=== PATIENT | female | born 1925 | race Caucasian/White ===

== ENCOUNTER 2016-04-06 18:20 | Emergency (ER) | payer OTHER, MEDICARE ==
--- NOTE | 2016-04-06 18:45 | DIAGNOSTIC IMAGING REPORT ---
PROCEDURE: CT HEAD WITHOUT CONTRAST INDICATION: STROKE TECHNIQUE: Axial CT images were acquired through the head. Coronal and sagittal reformations were created. COMPARISON: None. FINDINGS: Mild cerebral cortical atrophy. Mild hypodensity in the periventricular and subcortical white matter. No focal cortical defect. No intracranial hemorrhage or extraaxial fluid collections. Ventricles are normal in size, shape and position. There is no mass, mass effect or midline shift. The alexander-white matter differentiation is normal. There is no edema. Mild scattered calcific atherosclerosis of the intracranial internal carotid arteries. The calvarium is intact. The paranasal sinuses and mastoid air cells are normally aerated. The extracranial soft tissues and orbits are normal. IMPRESSION: 1. No CT evidence of acute intracranial process. 2. Age related involutional and white matter changes. 3. Findings discussed with Dr. Klein at [address] scans at this facility use dose modulation, iterative reconstruction, and/or weight-based dosing when appropriate to reduce radiation dose to as low as reasonably achievable.
--- NOTE | 2016-04-06 19:42 | ED ORDER SUMMARY ---
..... Patient: JAMES BALDWIN OrderSheet [facility] VisitID: [id number] [address] [place] [address] 89y, F Registration Date/Time: 04/06/2016 ORDER SHEET Weight: 69 kg (measured) Allergies: Sulfa Antibiotics GENERAL ORDERS: CT Head wo Cont Urgent (18:23 04/06/2016 LNations ER Tech1 per protocol) (Ack 18:25 KHoerner) (18:58 MCampbell) Chest 1V Urgent (18:26 04/06/2016 Jennie [place]) (Ack 18:32 KHoerner) (20:20 MCampbell) Paperboard Machine Operator (Continuous) (stroke symptoms) (18:26 04/06/2016 Jennie Washington) (Ack 18:32 KHoerner) Stroke Panel Stat (18:27 04/06/2016 Jennie Washington) (Ack 18:32 KHoerner) UA-Culture if indicated Urgent (18:27 04/06/2016 Jennie Washington) (Ack 18:32 KHoerner) Consult - Neuro (18:27 04/06/2016 Jennie Washington) (Ack 18:32 KHoerner) EKG - ER Stat (18:04/06/2016 Jennie Washington) (Ack 18:32 KHoerner) (19:03 KHoerner) - (18:27 04/06/2016 Jennie Washington) (18:33 KHoerner) Consent for Thrombolytics (have patient sign) (18:58 04/06/2016 Jennie Washington) Type & Cross (stroke) (tpa) Urgent (20:27 04/06/2016 DBeyer R.NKatlin per protocol) (20:28 DBeyer R.NKatlin) Type & Screen Urgent (20:28 04/06/2016 Jeannine RKatlinNKatlin verbal order read back to Jennie Washington) MEDICATION ORDERS: - (18:27 04/06/2016 Jennie Washington) (Cancelled: Duplicate Order18:34 Jennie Washington) IV FLUIDS: IV Saline Lock (18:04/06/2016 Jennie Washington) (18:41 Jeannine Lei) Metoprolol IV 5 mg (HIGH ALERT MEDICATION) (18:49 04/06/2016 Jeannine Lei verbal order read back to Jennie Washington) (18:53 Jeannine Lei) Metoprolol IV 5 mg (HIGH ALERT MEDICATION, NOW) (18:53 04/06/2016 Jennie Washington) (19:11 Jeannine Lei) TPA Protocol (Stroke) 0.9 mg/kg (Bolus-10% of total dose given over 1min, Infusion-remaining 90% of total dose given over 59) (18:57 04/06/2016 Jennie Washington) (19:17 Jeannine Lei) Labetalol IV 10 mg (HIGH ALERT MEDICATION, NOW) (19:40 04/06/2016 Jennie Washington) (Cancelled: Change in patient [id number]:41 Jennie Washington) ORDER SHEET NOTES: [Electronically signed by Abdulaziz Koroma R.N. (21:30 04/06/2016)] [Electronically signed by Hiram Klein Dr. (14:36 04/13/2016)] [Electronically locked/signed by Abdulaziz Koroma R.N. (21:30 04/06/2016)]
--- NOTE | 2016-04-06 19:42 | ED NURSING NOTES ---
Clinical Report - Nurses [facility] [address] [place] [address] 04/06/2016 18:20 [id number] TRI[facility] Triage time 18:27 Apr 06 2016. Chief Complaint: (stroke symptoms). --18:29 Abdulaziz Koroma R.N. 18:27 04/06/16. BP: 175/60. HR: 58. RR: 18. O2 saturation: 95%. Pain level now 0/10. --18:29 Abdulaziz Koroma R.N. ( cbg 122, NIHSS 7). --18:32 Abdulaziz Koroma R.N. Acuity: LEVEL 2. --18:32 Abdulaziz Koroma R.N. 18:41 04/06/16. Temp: 98 F. --18:41 Abdulaziz Koroma R.N. Weight: 69 kg measured. Height/Length: 60 inches Per Patient. BMI: 29.7. --18:42 Abdulaziz Koroma R.N. Medications Aspirin EC Oral. --18:43 Abdulaziz Koroma R.N. Allergies Sulfa Antibiotics. --18:28 Abdulaziz Koroma R.N. History Arrived by EMS. ( Last seen normal 1600 sudden onset facial weakness and droop with slurred speech). --18:29 Abdulaziz Koroma R.N. ( arrived 1820). --18:32 Abdulaziz Koroma R.N. Interventions ID band on patient. To treatment room. --18:32 Abdulaziz Koroma R.N. PHYSICAL ASSESSMENT GENERAL / NEURO / PSYCH: Alert. Oriented X 4. Appears anxious. HEENT: Left-sided facial weakness. RESPIRATORY: Respirations not labored. Breath sounds within normal limits. SKIN: Skin is warm and dry. --18:45 Abdulaziz Koroma R.N. NURSING PROGRESS NOTES 18:41 04/06/2016 Site #1 started via IV in the left antecubital space with an 20g angiocath; one attempt. Blood drawn: rainbow set. Labeled in the presence of the patient. Saline lock flushed with saline. --18:41 Abdulaziz Koroma R.N. marketing analytics manager and pulse oximeter placed on patient. Patient gowned. Call light placed in reach. Side rails up x 1. Bed placed in lowest position. --18:46 Abdulaziz Koroma R.N. 18:53 04/06/2016 Metoprolol (Metoprolol Tartrate) IVP 5 mg given over 3 minute(s) via site #1. Allergies verified and confirmed 5 rights. IV patency established. IV site checked: no pain, redness, or swelling. IV flushed thoroughly pre- and post-medication administration. IVP given by RN. --18:53 Abdulaziz Koroma R.N. EKG time: (1850). EKG was performed by a tech and shown to the ED physician. --18:54 Abdulaziz Koroma R.N. ( No arm drift L side, pt able to lift l leg shakey against gravity but no drift). --18:55 Abdulaziz Koroma R.N. 19:11 04/06/2016 Metoprolol (Metoprolol Tartrate) IVP 5 mg given over 2 minute(s) via site #1. Allergies verified and confirmed 5 rights. IV patency established. IV site checked: no pain, redness, or swelling. IV flushed thoroughly pre- and post-medication administration. IVP given by RN. --19:11 Abdulaziz Koroma R.N. 19:17 04/06/2016 Started 63 mg of TPA Protocol (Stroke) IVPB in bag #1 63 mL; at 57 mL/hr over 1 hour(s) via site #1 via IV pump. Allergies verified and confirmed 5 rights. IV patency established. IV site checked: no pain, redness, or swelling. IV flushed thoroughly pre- and post-medication administration (dose confrimed by RN, pharmacy and MD). --19:17 Abdulaziz Koroma R.N. 19:00 04/06/16. BP: 189/71. HR: 72. O2 saturation: 94%. --19:19 Abdulaziz Koroma R.N. 18:30 04/06/16. BP: 171. HR: 64. O2 saturation: 95%. --19:20 Abdulaziz Koroma R.N. 19:22 04/06/16. BP: 177/83. HR: 59. RR: 18. O2 saturation: 98%. Temp: 98 F. --19:22 Abdulaziz Koroma R.N. ( no change neruo status no hemorrhage). --19:36 Abdulaziz Koroma R.N. NIH STROKE SCALE: NIH Stroke Scale: score 3. Level of Consciousness: alert (0). LOC Questions: both (0). LOC Commands: both (0). Best gaze: normal (0). Visual field loss: none (0). Facial palsy: minor (1). Motor arm: no drift right arm (0) and no drift left arm (0). Motor leg: no drift right leg (0) and no drift left leg (0). Limb ataxia: two limbs (2). Sensory loss: none (0). Aphasia: none (0). Dysarthria: normal (0). Extinction and inattention: none (0). --19:40 Abdulaziz Koroma R.N. 19:38 04/06/16. BP: 164/54. --19:40 Abdulaziz oKroma R.N. ( weakness on L side noted but no drift). --19:42 Abdulaziz Koroma R.N. 19:23 04/06/2016 Site #2 started via IV in the right wrist with an 20g angiocath; three attempts. Blood drawn. Saline lock flushed with saline. --20:33 Abdulaziz Koroma R.N. 20:22 04/06/2016 TPA Protocol (Stroke) IVPB Discontinued: bag #1 discontinued upon transfer. Total amount infused: 45 mL. IV patency established. IV site checked: no pain, redness, or swelling. IV flushed thoroughly. (stopped due to hemorrage, pt received 45mg). --20:22 Abdulaziz Koroma R.N. DISPOSITION / DISCHARGE ( TPA stopped, 11mg left in infusion, blood noted in pts diaper pt approximately 50 ml blood noted MD aware at bedside for eval. EMS arrived for transfer will transfer pt per MD). --20:21 Abdulaziz Koroma R.N. 20:13 04/06/16. BP: 165/97. HR: 65. RR: 18. O2 saturation: 95%. Temp: 98.4 F. Pain level now 5/10. --20:21 Abdulaziz Koroma R.N. The patient was discharged by the physician. ( bleeding controlled at this time report to EMS, NIHSS stroke scale 3 at time of transfer). --20:32 Abdulaziz Koroma R.N. Departure time: 20:34 Apr 06 2016. --20:34 Abdulaziz Koroma R.N. Locked/Released at 04/06/2016 21:30 by Abdulaziz Koroma R.N.
--- NOTE | 2016-04-06 19:42 | ED CLINICAL REPORT ---
Clinical Report - Physicians/Mid Levels [facility] [address] [place] [address] 04/06/2016 18:20 Patient: JAMES BALDWIN Time Seen: 1819. Arrived- By ambulance. Historian- patient and EMS personnel. HISTORY OF PRESENT ILLNESS Chief Complaint: WEAKNESS and FACIAL DROOP. This started today 1600, patient was last known well (just before 1600) and is still present. It was abrupt in onset and has been constant but is not gone now. The patient has had weakness, (left facial and upper lower extremity). At its maximum deficit described as moderate. When seen in the E.D.,deficit described as moderate. No seizure. Usually is alert and oriented X3 and has normal mobility. Similar symptoms previously: Twice. Recent medical care: The patient was seen recently in the emergency department (seen at another ED. symptoms resolved and patient was released.). REVIEW OF SYSTEMS No fever, chest pain or difficulty breathing. All systems otherwise negative, except as recorded above. PAST HISTORY See nurses notes. Medications: Aspirin EC Oral. Allergies: Sulfa Antibiotics. SOCIAL HISTORY Never smoker. No drug use. Is a local resident. FAMILY HISTORY Negative. ADDITIONAL NOTES The nursing notes have been reviewed. PHYSICAL EXAM Vital Signs: 04/06/2016 18:27 BP: 175/60. HR: 58. RR: 18. O2 saturation: 95%. Hypertensive. Oxygen saturation normal. Appearance: Alert. No acute distress. Head: Head atraumatic. Eyes: Pupils equal, round and reactive to light. ENT: Normal ENT inspection. Airway intact. Pharynx normal. Neck: Normal inspection. CVS: Normal heart rate and rhythm. Heart sounds normal. Pulses normal. Respiratory: Breath sounds normal. Abdomen: Soft and nontender. No organomegaly. Back: Normal inspection. Skin: Skin warm and dry. Normal skin color. No rash. Normal skin turgor. Extremities: No calf tenderness. No lower extremity edema. Neuro: Alert. Oriented X 3. Mood/affect normal. Mild dysarthria. Cranial nerves normal (as tested). Cranial nerve deficit present, as evidenced by a left facial droop and tongue deviation to the right. No sensory deficit. (left sided weakness 4/5 upper weaker than lower). LABS, X-RAYS, AND EKG EKG: No acute ischemia. Normal sinus rhythm. Normal P waves. Normal CORDELL. Normal QRS complex. Normal axis. occasional junctional rhythm. The study has been interpreted contemporaneously. The study has been independently viewed by me. The EKG appears to be a good tracing. CT Head: (no acute intracranial process). Head CT performed without contrast. The study was independently viewed by me and interpreted by the radiologist. The study was discussed with the radiologist (via phone). Laboratory Tests: CBC w Diff: (MOLLY: 04/06/2016 18:36) ( MsgRcvd 04/06/2016 18:45) Final results Test Result Flag Units (Reference) WHITE BLOOD COUNT 8.9 K/uL (4.5-11.5) RED BLOOD COUNT 4.26 M/uL (4.00-5.20) HEMOGLOBIN 12.9 gm/dL (12.0-16.0) HEMATOCRIT 39.6 % (36.0-46.0) MEAN CELL VOLUME 93 fL (80-100) MEAN CORPUSCULAR HGB 30 pg (26-34) MEAN CORPUSCULAR HGB CONC 33 g/dL (31-37) RED CELL DISTRIBUTION WIDTH 14.1 % (11.6-14.8) PLATELET COUNT 290 K/uL (150-400) NEUTROPHIL % 70.2 % (50-75) LYMPH % 17.1 L % (25-40) MONO % 12.1 % (3-14) EOSINOPHIL % 0.5 % (0-4) BASOPHIL % 0.1 % (0-2) . PROGRESS AND PROCEDURES Course of Care: the patient is a pleasant 89 yo female with concerning history of stroke. Code stroke called after exam performed. Patient taken to CT immediately. Patient agreeable to treatment and plan. Had discussion with patient in regards to the risk and benefits of TPA at this point in time, patient is a candidate for TPA. Consult to stroke neuro placed. Patient with hx of colon cancer and "ulcers" without recent bleeding. Patient reports she accepts the risks of bleeding. Bedside guaiac negative. Stroke neuro recommended TPA. CT scan of the head negative. Signed informed consent obtained. pharmacy with medications for TPA made. Dose and meds verified by , juan josé, and RN. We were waiting on coags which I called down to lab to call up to the ED as soon as they were back. Labs were normal. TPA given. Stroke neuro at [facility] updated. They will accept the patient. During patient's course, she had a bowel movement with maroon colored blood. Most of the TPA was given. Only 11 mg was left when the bag was stopped. Patient stable hemodynamically. [facility] updated on the situation. Transport was available and Type/screen would not be helpful as the patient was being transported. Feel the benefit of transport outweighs the risk even with a bleed. Amount of blood in noted estimated to at 50 cc. Prior to transport, patient asymptomatic from the bleeding. Stroke symptoms with slightly improved left sided strength. Critical care performed (65 minutes). Time is exclusive of separately billable procedures. Time includes: direct patient care, patient reassessment, coordination of patient care, interpretation of data (laboratory data), review of patient's medical records, medical consultation, family consultation regarding treatment decisions and documentation of patient care. Consult obtained. stroke neuro at [facility]. Disposition: Benefits, risks and alternatives to transfer explained to patient and family. Transferred to [facility]. CLINICAL IMPRESSION 04/06/2016 20:13 BP: 165/97. HR: 65. RR: 18. O2 saturation: 95%. Temp: 98.4 F. Hypertensive. Oxygen saturation normal. 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 (Electronically signed by Hiram Klein Dr. 04/13/2016 14:36) Addenda for JAMES BALDWIN VisitID: [id number] Date: 04/06/2016 04/07/2016 13:05 At 1850 pt BP was 190/110, aware bp medication ordered (Electronically signed by Abdulaziz Koroma R.N. - 04/07/2016 13:05) 04/07/2016 13:07 at 1910 pt BP systolic is in 190s aware bp med ordered (Electronically signed by Abdulaziz Koroma R.N. - 04/07/2016 13:07)
--- NOTE | 2016-04-06 19:42 | ED ORDER SUMMARY ---
..... Patient: JAMES BALDWIN OrderSheet [facility] VisitID: [id number] [address] [place] [address] 89y, F Registration Date/Time: 04/06/2016 ORDER SHEET Weight: 69 kg (measured) Allergies: Sulfa Antibiotics GENERAL ORDERS: CT Head wo Cont Urgent (18:23 04/06/2016 LNations ER Tech1 per protocol) (Ack 18:25 KHoerner) (18:58 MCampbell) Chest 1V Urgent (18:26 04/06/2016 Jennie Washington) (Ack 18:32 KHoerner) (20:20 MCampbell) Stitch Cleaner (Continuous) (stroke symptoms) (18:26 04/06/2016 Jennie Washington) (Ack 18:32 KHoerner) Stroke Panel Stat (18:27 04/06/2016 Jennie Washington) (Ack 18:32 KHoerner) UA-Culture if indicated Urgent (18:27 04/06/2016 Jennie Washington) (Ack 18:32 KHoerner) Consult - Neuro (18:27 04/06/2016 Jennie Washington) (Ack 18:32 KHoerner) EKG - ER Stat (18:04/06/2016 Jennie Washington) (Ack 18:32 KHoerner) (19:03 KHoerner) - (18:27 04/06/2016 Jennie Washington) (18:33 KHoerner) Consent for Thrombolytics (have patient sign) (18:58 04/06/2016 Jennie Washington) Type & Cross (stroke) (tpa) Urgent (20:27 04/06/2016 DBeyer R.NKatlin per protocol) (20:28 DBeyer R.NKatlin) Type & Screen Urgent (20:28 04/06/2016 Jeannine RKatlinNKatlin verbal order read back to Jennie Washington) MEDICATION ORDERS: - (18:27 04/06/2016 Jennie Washington) (Cancelled: Duplicate Order18:34 Jennie Washington) IV FLUIDS: IV Saline Lock (18:04/06/2016 Jennie Washington) (18:41 Jeannine Lei) Metoprolol IV 5 mg (HIGH ALERT MEDICATION) (18:49 04/06/2016 Jeannine Lei verbal order read back to Jennie Washington) (18:53 Jeannine Lei) Metoprolol IV 5 mg (HIGH ALERT MEDICATION, NOW) (18:53 04/06/2016 Jennie Washington) (19:11 Jeannine Lei) TPA Protocol (Stroke) 0.9 mg/kg (Bolus-10% of total dose given over 1min, Infusion-remaining 90% of total dose given over 59) (18:57 04/06/2016 Jennie Washington) (19:17 Jeannine Lei) Labetalol IV 10 mg (HIGH ALERT MEDICATION, NOW) (19:40 04/06/2016 Jennie Washington) (Cancelled: Change in patient [id number]:41 Jennie Washington) ORDER SHEET NOTES: [Electronically signed by Abdulaziz Koroma R.N. (21:30 04/06/2016)] [Electronically signed by Hiram Klein Dr. (14:36 04/13/2016)] [Electronically locked/signed by Abdulaziz Koroma R.N. (21:30 04/06/2016)]
--- NOTE | 2016-04-06 19:42 | ED NURSING NOTES ---
Clinical Report - Nurses [facility] [address] [place] [address] 04/06/2016 18:20 [id number] Triage time 18:27 Apr 06 2016. Chief Complaint: (stroke symptoms). --18:29 Abdulaziz Koroma R.N. 18:27 04/06/16. BP: 175/60. HR: 58. RR: 18. O2 saturation: 95%. Pain level now 0/10. --18:29 Abdulaziz Koroma R.N. ( cbg 122, NIHSS 7). --18:32 Abdulaziz Koroma R.N. Acuity: LEVEL 2. --18:32 Abdulaziz Koroma R.N. 18:41 04/06/16. Temp: 98 F. --18:41 Abdulaziz Koroma R.N. Weight: 69 kg measured. Height/Length: 60 inches Per Patient. BMI: 29.7. --18:42 Abdulaziz Koroma R.N. Medications Aspirin EC Oral. --18:43 Abdulaziz Koroma R.N. Allergies Sulfa Antibiotics. --18:28 Abdulaziz Koroma R.N. History Arrived by EMS. ( Last seen normal 1600 sudden onset facial weakness and droop with slurred speech). --18:29 Abdulaziz Koroma R.N. ( arrived 1820). --18:32 Abdulaziz Koroma R.N. Interventions ID band on patient. To treatment room. --18:32 Abdulaziz Koroma R.N. PHYSICAL ASSESSMENT GENERAL / NEURO / PSYCH: Alert. Oriented X 4. Appears anxious. HEENT: Left-sided facial weakness. RESPIRATORY: Respirations not labored. Breath sounds within normal limits. SKIN: Skin is warm and dry. --18:45 Abdulaziz Koroma R.N. NURSING PROGRESS NOTES 18:41 04/06/2016 Site #1 started via IV in the left antecubital space with an 20g angiocath; one attempt. Blood drawn: rainbow set. Labeled in the presence of the patient. Saline lock flushed with saline. --18:41 Abdulaziz Koroma R.N. cafeteria monitor and pulse oximeter placed on patient. Patient gowned. Call light placed in reach. Side rails up x 1. Bed placed in lowest position. --18:46 Abdulaziz Koroma R.N. 18:53 04/06/2016 Metoprolol (Metoprolol Tartrate) IVP 5 mg given over 3 minute(s) via site #1. Allergies verified and confirmed 5 rights. IV patency established. IV site checked: no pain, redness, or swelling. IV flushed thoroughly pre- and post-medication administration. IVP given by RN. --18:53 Abdulaziz Koroma R.N. EKG time: (1850). EKG was performed by a tech and shown to the ED physician. --18:54 Abdulaziz Koroma R.N. ( No arm drift L side, pt able to lift l leg shakey against gravity but no drift). --18:55 Abdulaziz Koroma R.N. 19:11 04/06/2016 Metoprolol (Metoprolol Tartrate) IVP 5 mg given over 2 minute(s) via site #1. Allergies verified and confirmed 5 rights. IV patency established. IV site checked: no pain, redness, or swelling. IV flushed thoroughly pre- and post-medication administration. IVP given by RN. --19:11 Abdulaziz Koroma R.N. 19:17 04/06/2016 Started 63 mg of TPA Protocol (Stroke) IVPB in bag #1 63 mL; at 57 mL/hr over 1 hour(s) via site #1 via IV pump. Allergies verified and confirmed 5 rights. IV patency established. IV site checked: no pain, redness, or swelling. IV flushed thoroughly pre- and post-medication administration (dose confrimed by RN, pharmacy and MD). --19:17 Abdulaziz Koroma R.N. 19:00 04/06/16. BP: 189/71. HR: 72. O2 saturation: 94%. --19:19 Abdulaziz Koroma R.N. 18:30 04/06/16. BP: 171. HR: 64. O2 saturation: 95%. --19:20 Abdulaziz Koroma R.N. 19:22 04/06/16. BP: 177/83. HR: 59. RR: 18. O2 saturation: 98%. Temp: 98 F. --19:22 Abdulaziz Koroma R.N. ( no change neruo status no hemorrhage). --19:36 Abdulaziz Koroma R.N. NIH STROKE SCALE: NIH Stroke Scale: score 3. Level of Consciousness: alert (0). LOC Questions: both (0). LOC Commands: both (0). Best gaze: normal (0). Visual field loss: none (0). Facial palsy: minor (1). Motor arm: no drift right arm (0) and no drift left arm (0). Motor leg: no drift right leg (0) and no drift left leg (0). Limb ataxia: two limbs (2). Sensory loss: none (0). Aphasia: none (0). Dysarthria: normal (0). Extinction and inattention: none (0). --19:40 Abdulaziz Koroma R.N. 19:38 04/06/16. BP: 164/54. --19:40 Abdulaziz Koroma R.N. ( weakness on L side noted but no drift). --19:42 Abdulaziz Koroma R.N. 19:23 04/06/2016 Site #2 started via IV in the right wrist with an 20g angiocath; three attempts. Blood drawn. Saline lock flushed with saline. --20:33 Abdulaziz Koroma R.N. 20:22 04/06/2016 TPA Protocol (Stroke) IVPB Discontinued: bag #1 discontinued upon transfer. Total amount infused: 45 mL. IV patency established. IV site checked: no pain, redness, or swelling. IV flushed thoroughly. (stopped due to hemorrage, pt received 45mg). --20:22 Abdulaziz Koroma R.N. DISPOSITION / DISCHARGE ( TPA stopped, 11mg left in infusion, blood noted in pts diaper pt approximately 50 ml blood noted MD aware at bedside for eval. EMS arrived for transfer will transfer pt per MD). --20:21 Abdulaziz Koroma R.N. 20:13 04/06/16. BP: 165/97. HR: 65. RR: 18. O2 saturation: 95%. Temp: 98.4 F. Pain level now 5/10. --20:21 Abdulaziz Koroma R.N. The patient was discharged by the physician. ( bleeding controlled at this time report to EMS, NIHSS stroke scale 3 at time of transfer). --20:32 Abdulaziz Koroma R.N. Departure time: 20:34 Apr 06 2016. --20:34 Abdulaziz Koroma R.N. Locked/Released at 04/06/2016 21:30 by Abdulaziz Koroma R.N.
--- NOTE | 2016-04-06 22:09 | DIAGNOSTIC IMAGING REPORT ---
PROCEDURE: XR CHEST 1 VIEW INDICATION: STROKE SYMPTOMS TECHNIQUE: Single view chest. 1923 hours COMPARISON: None FINDINGS: Moderate cardiomegaly. Normal aortic contour with mild aortic arch atherosclerosis. No central venous congestion. Hyperlucent lungs with coarse interstitial markings. Moderate to large hiatal hernia. Vaguely rounded density just to the left of the hiatal hernia shadow may be mitral annular calcification. No focal consolidation, effusion, or pneumothorax. Osteopenic bones. Chronic right rotator cuff tear changes. IMPRESSION: 1. No acute process. 2. Cardiomegaly without CHF. 3. Hyperlucency suggestive of emphysema or fibrotic senescent changes. 4. Hiatal hernia. 5. Probable mitral annular calcification.
--- NOTE | 2016-04-13 14:36 | ED DISCHARGE INSTRUCTIONS ---
Patient: JAMES BALDWIN General Instructions Located Within [facility] VisitID: [id number] [address] [place] [address] 89y, F Registration Date/Time: 04/06/2016 04/06/2016 20:13 BP: 165/97. HR: 65. RR: 18. O2 saturation: 95%. Temp: 98.4 F. Hypertensive. Oxygen saturation normal. 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 (Electronically signed by Hiram Klein Dr. 04/13/2016 14:36)
--- NOTE | 2016-04-13 14:36 | ED MED RECONCILIATION SUMMARY ---
Patient: JAMES BALDWIN Medication Reconciliation Report [facility] VisitID: [id number] [address] [place] [address] 89y, F Registration Date/Time: 04/06/2016 Weight: 69 kg Height/Length: 60 in. BMI: 29.7 ALLERGIES: Sulfa Antibiotics The patient's Home Medications are listed below: THE FOLLOWING MEDICATIONS NEED TO BE RECONCILED: Aspirin EC Oral The source(s) of the original Home Medication information: Not obtained. The following Medications were given to the patient in the Emergency Department: Metoprolol [IVP] IVP 5 mg, administered: 04/06/2016 6:53:00 PM Metoprolol [IVP] IVP 5 mg, administered: 04/06/2016 7:11:00 PM TPA Protocol (Stroke) IVPB bolus 0, then 63 mg 57 mL/hr, administered: 04/06/2016 7:17:00 PM The following Medications were prescribed to the patient: None.
--- NOTE | 2016-04-13 14:36 | ED MAR SUMMARY ---
..... Medication Administration Record [facility] [address] [place] [address] Patient: JAMES BALDWIN Visit ID: [id number] 89y, F Weight: 69.0 kg Height/Length: 60 in BMI: 29.7 ALLERGIES: Sulfa Antibiotics Given 18:53 04/06/2016 Abdulaziz Koroma R.N. Medication Administered: METOPROLOL [IVP] (METOPROLOL TARTRATE), Dose: 5 mg IVP over 3 minute(s), Site: #1 left AC. Medication Ordered: Metoprolol IV 5 mg (HIGH ALERT MEDICATION). Given 19:11 04/06/2016 Abdulaziz Koroma R.N. Medication Administered: METOPROLOL [IVP] (METOPROLOL TARTRATE), Dose: 5 mg IVP over 2 minute(s), Site: #1 left AC. Medication Ordered: Metoprolol IV 5 mg (HIGH ALERT MEDICATION, NOW). Start 19:17 04/06/2016 Abdulaziz Koroma R.NKatlin, Stop 20:22 04/06/2016 Abdulaziz Koroma R.NKatlin Medication Administered: TPA PROTOCOL (STROKE), Dose: 63 mg IVPB over 1 hour(s), Rate: 57 mL/hr, Dispensed: 63 mL bag, Site: #1 left AC. Medication Ordered: TPA Protocol (Stroke) 0.9 mg/kg (Bolus-10% of total dose given over 1min, Infusion-remaining 90% of total dose given over 59).
--- NOTE | 2016-04-13 14:36 | ED MED RECONCILIATION SUMMARY ---
Patient: JAMES BALDWIN Medication Reconciliation Report [facility] VisitID: [id number] [address] [place] [address] 89y, F Registration Date/Time: 04/06/2016 Weight: 69 kg Height/Length: 60 in. BMI: 29.7 ALLERGIES: Sulfa Antibiotics The patient's Home Medications are listed below: THE FOLLOWING MEDICATIONS NEED TO BE RECONCILED: Aspirin EC Oral The source(s) of the original Home Medication information: Not obtained. The following Medications were given to the patient in the Emergency Department: Metoprolol [IVP] IVP 5 mg, administered: 04/06/2016 6:53:00 PM Metoprolol [IVP] IVP 5 mg, administered: 04/06/2016 7:11:00 PM TPA Protocol (Stroke) IVPB bolus 0, then 63 mg 57 mL/hr, administered: 04/06/2016 7:17:00 PM The following Medications were prescribed to the patient: None.
--- NOTE | 2016-04-13 14:36 | ED DISCHARGE INSTRUCTIONS ---
Patient: JAMES BALDWIN General Instructions [facility] VisitID: [id number] [address] [place] [address] 89y, F Registration Date/Time: 04/06/2016 04/06/2016 20:13 BP: 165/97. HR: 65. RR: 18. O2 saturation: 95%. Temp: 98.4 F. Hypertensive. Oxygen saturation normal. 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 (Electronically signed by Hiram Klein Dr. 04/13/2016 14:36)
--- NOTE | 2016-04-13 14:36 | ED MAR SUMMARY ---
..... Medication Administration Record [facility] [address] [place] [address] Patient: JAMES BALDWIN Visit ID: [id number] 89y, F Weight: 69.0 kg Height/Length: 60 in BMI: 29.7 ALLERGIES: Sulfa Antibiotics Given 18:53 04/06/2016 Abdulaziz Koroma R.N. Medication Administered: METOPROLOL [IVP] (METOPROLOL TARTRATE), Dose: 5 mg IVP over 3 minute(s), Site: #1 left AC. Medication Ordered: Metoprolol IV 5 mg (HIGH ALERT MEDICATION). Given 19:11 04/06/2016 Abdulaziz Koroma R.N. Medication Administered: METOPROLOL [IVP] (METOPROLOL TARTRATE), Dose: 5 mg IVP over 2 minute(s), Site: #1 left AC. Medication Ordered: Metoprolol IV 5 mg (HIGH ALERT MEDICATION, NOW). Start 19:17 04/06/2016 Abdulaziz Koroma R.NKatlin, Stop 20:22 04/06/2016 Abdulaziz Koroma R.NKatlin Medication Administered: TPA PROTOCOL (STROKE), Dose: 63 mg IVPB over 1 hour(s), Rate: 57 mL/hr, Dispensed: 63 mL bag, Site: #1 left AC. Medication Ordered: TPA Protocol (Stroke) 0.9 mg/kg (Bolus-10% of total dose given over 1min, Infusion-remaining 90% of total dose given over 59).
== END 2016-04-06 20:34 | disposition short-term general hospital (02) ==
LOC: ED SRH 18:20
DX: I63.9 Cerebral infarction, unspecified (principal); R53.1 Weakness; K92.2 Gastrointestinal hemorrhage, unspecified; Z79.82 Long term (current) use of aspirin; Z88.2 Allergy status to sulfonamides
CPT/HCPCS: 90100; 91556; 94001; 94050; 94060; 95059